=== PATIENT | male | born 1990 | race African-American/Black ===

== ENCOUNTER 2019-05-03 04:53 | Emergency (ER) | payer MEDICAID, SELFPAY ==
[2019-05-03] MEDS ORDERED: Lidocaine 1% w/Epinephrine 1:100K 30 ML VIAL ONE (05:12)
[2019-05-03 05:34] LABS: ALT (SGPT) 23 U/L (8-55); AST (SGOT) 30 U/L (5-34); Albumin 4.3 g/dL (3.5-5.0); Alcohol 144 mg/dL (Less than 10); Alkaline Phosphatase 48 U/L (40-110); Anion Gap 15 mmol/L (10-20); BUN (Urea Nitrogen) 16 mg/dL (8.9-20.6); Bilirubin, Total 0.3 mg/dL (0.2-1.2); Calc. Creatinine Clearance 0 mL/min (70-130); Calcium 8.7 mg/dL (7.8-10.44); Carbon Dioxide 23 mmol/L (22-29); Chloride 110 mmol/L (98-107); Estimated GFR-MDRD 76; Globulin 3.1 g/dL (2.4-3.5); Glucose 122 mg/dL (70-105); Lipase 21 U/L (8-78); Potassium 3.4 mmol/L (3.5-5.1); Protein, Total 7.4 g/dL (6.0-8.3); Sodium 145 mmol/L (136-145)
[2019-05-03] MEDS ORDERED: Adacel (T-DAP) 0.5 ML SYRINGE ONE (05:42)
[2019-05-03 05:49] LABS: Band 4 % (5-11); Hemoglobin 14.8 g/dL (14.0-18.0); Lymphocytes 48 % (21-51); MDiff Complete? YES; Mean Corpuscular HGB CONC 34.3 g/dL (32.0-36.0); Mean Corpuscular Hemoglobin 29.7 pg (27.0-31.0); Mean Corpuscular Volume 86.5 fL (78.0-98.0); Monocytes 6 % (0-10); Neutrophil 34 % (42-75); Platelet Count 222 thou/uL (130-400); Platelet Morphology Comment Appears Adequate; RBC Distribution Width 11.3 % (11.5-14.5); RBC Morphology Normal; Reactive Lymphocytes 8 % (0-10); White Blood Cell (WBC) Count 5.4 thou/uL (4.8-10.8)
[2019-05-03] MEDS ORDERED: Bacitracin 1 PK ONE (06:35)
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
[2019-05-03] MEDS ORDERED: Iopamidol 370 76% 100 ML VIAL ONE (09:00)
== END 2019-05-03 06:58 | disposition home or self-care (01) ==
LOC: NAV ERS 04:53
DX: S31.119A Laceration without foreign body of abdominal wall, unspecified quadrant without penetration into peritoneal cavity, initial encounter (principal); Z23 Encounter for immunization; W25.XXXA Contact with sharp glass, initial encounter; Y92.009 Unspecified place in unspecified non-institutional (private) residence as the place of occurrence of the external cause
CPT/HCPCS: 12001; 36415; 71260; 74177; 80053; 80307; 83690; 85025; 86850; 86900; 86901; 90471; 90715; J2001; Q9967

== ENCOUNTER 2019-07-29 01:11 | Emergency (ER) | payer SELFPAY ==
[2019-07-29] MEDS ORDERED: Lidocaine 1% (PF) 30 ML VIAL ONE (01:29)
== END 2019-07-29 02:02 | disposition home or self-care (01) ==
LOC: NAV ERS 01:11
DX: S61.215A Laceration without foreign body of left ring finger without damage to nail, initial encounter (principal); W26.0XXA Contact with knife, initial encounter
CPT/HCPCS: 12002; J2001